=== PATIENT | female | born 1995 | race African-American/Black ===

== ENCOUNTER 2025-08-23 23:40 | Emergency (ER) | payer MEDICAID, OTHER ==
[2025-08-24] MEDS ORDERED: Acetaminophen 500 MG TAB ONE (01:26)
== END 2025-08-24 03:15 | disposition home or self-care (01) ==
LOC: ERS 23:40
DX: J11.1 Influenza due to unidentified influenza virus with other respiratory manifestations (principal); J45.901 Unspecified asthma with (acute) exacerbation
CPT/HCPCS: 87428; 94640; J1100